=== PATIENT | male | born 1955 | race Caucasian/White ===

== ENCOUNTER 2018-09-04 15:11 | Inpatient (IN) | payer MEDICARE, OTHER ==
[2018-09-04 15:59] LABS: #Basophils 0.1 thou/uL (0.0-0.2); #Eosinphils 0.1 thou/uL (0.0-0.7); #Lymphocytes 1.9 thou/uL (1.20-3.40); #Monocytes 0.5 thou/uL (0.11-0.59); #Neutrophils 3.2 thou/uL (1.40-6.50); %Basophils 1.3 % (0.0-1.0); %Eosinophils 1.5 % (0.0-10.0); %Lymphocytes 32.8 % (21.0-51.0); %Neutrophils 56.4 % (42.0-75.0); Hemoglobin 15.8 g/dL (14.0-18.0); Mean Corpuscular HGB CONC 33.5 g/dL (32.0-36.0); Mean Corpuscular Hemoglobin 31.4 pg (27.0-31.0); Mean Corpuscular Volume 93.7 fL (78.0-98.0); Mean Platelet Volume 7.1 fL (7.4-10.4); Platelet Count 259 thou/uL (130-400); Red Blood Cell (RBC) Count 5.04 mill/uL (4.70-6.10); White Blood Cell (WBC) Count 5.7 thou/uL (4.8-10.8)
[2018-09-04] MEDS ORDERED: Nitroglycerin 2% Ointment 1 INCH/1 GM Packet ONE (16:15)
--- NOTE | 2018-09-04 16:18 | RAD ---
RADIOGRAPH CHEST 1 VIEW: HISTORY: A 63-year-old male with chest pain. FINDINGS: There are no air space densities, pulmonary edema, pneumothorax, or cardiomegaly. The lateral costop hrenic angles are sharp. IMPRESSION: No acute cardiopulmonary findings. jn [] POS: GILDARDO
[2018-09-04 16:25] LABS: CKMB 5.8 ng/mL (0-6.6); Troponin I 0.089 ng/mL (< 0.028)
[2018-09-04 16:28] LABS: ALT (SGPT) 17 U/L (8-55); AST (SGOT) 21 U/L (5-34); Albumin 4.5 g/dL (3.4-4.8); Alkaline Phosphatase 73 U/L (40-150); Anion Gap 14 mmol/L (10-20); BUN (Urea Nitrogen) 14 mg/dL (8.4-25.7); Bilirubin, Total 0.4 mg/dL (0.2-1.2); CK (CPK) 213 U/L (30-200); Calc. Creatinine Clearance 0 mL/min (70-130); Calcium 9.7 mg/dL (7.8-10.44); Carbon Dioxide 24 mmol/L (23-31); Chloride 105 mmol/L (98-107); Estimated GFR-MDRD 84; Globulin 2.9 g/dL (2.4-3.5); Glucose 83 mg/dL (80-115); Lipase 34 U/L (8-78); Potassium 4.2 mmol/L (3.5-5.1); Protein, Total 7.4 g/dL (5.8-8.1); Sodium 139 mmol/L (136-145)
[2018-09-04] MEDS ORDERED: Enoxaparin Sodium 100 MG/ML SYRINGE ONE (16:55)
[2018-09-04] MEDS ORDERED: Acetaminophen 325 MG TAB PO PRN (17:30)
[2018-09-04] MEDS ORDERED: Senokot S 8.6-50 MG TAB PO PRN (17:30)
[2018-09-04] MEDS ORDERED: Acetaminophen 650 MG Suppository PR PRN (17:30)
--- NOTE | 2018-09-04 18:23 | HP ---
PRIMARY CARE PROVIDER: Isaac Rojas M.D. CHIEF COMPLAINT: Chest pain. HISTORY OF PRESENT ILLNESS: Mr. Lozano is a pleasant 63-year-old gentleman who was seen at [facility] on 09/04/2018. He has a history of coronary artery disease and is followed by Dr. Burch. Over the last several weeks, he has had chest discomfort. He describes it as sharp, in the retroster nal region, occasionally radiating to the left side of the chest and down his left arm. The patient reports that the pain is worsened with exercise. He denies that he has any shortness of breath. He denies any nausea, lightheadedness, cough, fevers or chills. He reports that the pain worsened over the last 3 days in terms of the duration as well as intensity. He describes that it was 10/10 yesterday. He started having the pain today afternoon and there was no resolution to the pain, he therefore presented to the emergency room. REVIEW OF SYSTEMS: All other systems reviewed and found to be negative. PAST MEDICAL HISTORY: Coronary artery disease, hypertension, and dyslipidemia. PAST SURGICAL HISTORY: PCI with stents. SOCIAL HISTORY: Rare alcohol use, no tobacco use or recreational drug use. FAMILY HISTORY: His father from myocardial infarction. ALLERGIES: No known drug allergies. CURRENT MEDICATIONS: Plavix 75 mg daily; Edarbi, dose unknown, daily; Praluent injection every 2 wee ks, last dose was 2 days ago; and amlodipine 10 mg daily. The patient was also on aspirin, but it wa s stopped 2 months ago. CODE STATUS: I discussed his code status. He is FULL CODE. PHYSICAL EXAMINATION: GENERAL: Mr. Lozano is awake and alert, not in acute distress. VITAL SIGNS: Blood pressure is 124/70, pulse 63, respiratory rate 14, and oxygen saturation 99% on r oom air. He is afebrile. EYES: No scleral icterus. No conjunctival pallor. ENT: Moist mucosal membranes, no oropharyngeal erythema or exudate. NECK: Supple, nontender, trachea is midline. RESPIRATORY: Accessory muscles of breathing are not active. Chest wall movements are symmetric bila terally. LUNGS: Clear to auscultation, without wheeze, rhonchi or crepitations. CARDIOVASCULAR: S1 and S2 are heard, regular. Peripheral pulses palpable. No carotid bruit, no per icardial rub. ABDOMEN: Soft, nontender, bowel sounds heard, no hepatomegaly, no splenomegaly. NEUROLOGIC: Cranial nerves II-XII intact. Deep tendon reflexes are 2+. MUSCULOSKELETAL: Power is 5/5 in all 4 extremities. SKIN: No rashes or subcutaneous nodules. LYMPHATIC: No cervical lymphadenopathy. PSYCHIATRIC: Normal mood, normal affect, patient is oriented to person, place, and time. LABORATORY DATA: Mr. Lozano's labs and investigations were reviewed. I reviewed his electrocardiogram , which shows normal sinus rhythm, no ST changes to suggest an acute coronary syndrome. I also revie wed his chest x-ray, which does not show any pulmonary infiltrates. He has an unremarkable CBC, D-di josh less than 0.27. Troponin I mildly elevated at 0.089 and an unremarkable comprehensive metabolic profile. Lipase level is normal. ASSESSMENT AND PLAN: Mr. Lozano is a pleasant 63-year-old gentleman who was seen at [facility] on 09/04/2018. His problem list includes: 1. Unstable angina: Mr. Lozano is presenting with unstable angina. He will be admitted to the hospit al for further management. He has already received aspirin and dose of therapeutic Lovenox, which I will continue. Cardiology service being consulted for help with further management. His troponin wi ll be rechecked. 2. Hypertension: We will resume home medications, monitor vital signs and titrate antihypertensives as needed. 3. Dyslipidemia: We will continue Praluent. 4. Elevated troponin: The patient has a troponin that is in the indeterminate range at this time. We will trend troponins. Many thanks for allowing me to participate in your patient's care. Please feel free to contact me wi th any questions or concerns. LEVEL OF RISK: High. LEVEL OF COMPLEXITY: High.
[2018-09-04 19:36] LABS: Troponin I 0.225 ng/mL (< 0.028)
[2018-09-04 20:52] VITALS: BMI 29.7
[2018-09-04 22:49] LABS: Troponin I 0.321 ng/mL (< 0.028)
[2018-09-04] MEDS ORDERED: Metoprolol Tartrate 25 MG TAB PO SCH (23:30)
[2018-09-05] MEDS: Enoxaparin Sodium 100 MG/ML SYRINGE SC SCH ×2 (06:05→17:52)
[2018-09-05 06:09] LABS: #Basophils 0.1 thou/uL (0.0-0.2); #Eosinphils 0.1 thou/uL (0.0-0.7); #Monocytes 0.5 thou/uL (0.11-0.59); #Neutrophils 3.9 thou/uL (1.40-6.50); %Basophils 0.8 % (0.0-1.0); %Eosinophils 1.4 % (0.0-10.0); %Lymphocytes 30.9 % (21.0-51.0); %Monocytes 7.7 % (0.0-10.0); %Neutrophils 59.3 % (42.0-75.0); Hemoglobin 14.2 g/dL (14.0-18.0); Mean Corpuscular HGB CONC 33.2 g/dL (32.0-36.0); Mean Corpuscular Hemoglobin 31.2 pg (27.0-31.0); Mean Corpuscular Volume 93.9 fL (78.0-98.0); Platelet Count 229 thou/uL (130-400); RBC Distribution Width 11.9 % (11.5-14.5); Red Blood Cell (RBC) Count 4.56 mill/uL (4.70-6.10); White Blood Cell (WBC) Count 6.6 thou/uL (4.8-10.8)
[2018-09-05 06:23] LABS: Anion Gap 12 mmol/L (10-20); BUN (Urea Nitrogen) 14 mg/dL (8.4-25.7); Calc. Creatinine Clearance 114 mL/min (70-130); Calcium 9.4 mg/dL (7.8-10.44); Carbon Dioxide 29 mmol/L (23-31); Chloride 105 mmol/L (98-107); Estimated GFR-MDRD 87; Glucose 106 mg/dL (80-115); Potassium 4.5 mmol/L (3.5-5.1); Sodium 141 mmol/L (136-145)
[2018-09-05 08:25] LABS: Hemoglobin 14.4 g/dL (14.0-18.0); Platelet Count 232 thou/uL (130-400)
[2018-09-05 08:46] LABS: Calc. Creatinine Clearance 122 mL/min (70-130); Estimated GFR-MDRD Greater than 90
[2018-09-05] MEDS: Aspirin 325 MG TAB PO SCH (08:54)
[2018-09-05] MEDS: Metoprolol Tartrate 25 MG TAB PO SCH ×2 (08:54→21:40)
[2018-09-05] MEDS: Clopidogrel Bisulfate 75 MG TAB PO SCH (08:54)
[2018-09-05] MEDS ORDERED: Prevnar 13-Val Conj/PF 0.5 ML SYRINGE IM ONE (09:00)
[2018-09-05 09:16] LABS: CKMB 4.7 ng/mL (0-6.6)
[2018-09-05 09:19] LABS: Troponin I 0.407 ng/mL (< 0.028)
[2018-09-05 11:53] LABS: CKMB 4.4 ng/mL (0-6.6)
[2018-09-05 11:55] LABS: Critical Call Chem Troponin I RESULT DECREASING; Troponin I 0.322 ng/mL (< 0.028)
[2018-09-05] MEDS: Nitroglycerin 0.4 MG TAB (25 Tab Bottle) PO PRN ×2 (12:04→18:14)
--- NOTE | 2018-09-05 13:47 | PDOC.PN ---
- Subjective Encounter Start Date: 09/05/18 Encounter Start Time: 08:40 Pt seen for followup re: NSTEMI. Denies chest pain, shortness of breath, fevers or chills. - Objective Resuscitation Status: Resuscitation Status FULL:Full Resuscitation MAR Reviewed: Yes Vital Signs & Weight: Vital Signs (12 hours) Temp Pulse Resp BP Pulse Ox 09/05/18 11:57 97.6 F 64 17 136/74 96 09/05/18 08:47 98.0 F 65 15 124/75 95 09/05/18 04:00 97.9 F 61 16 100/59 L 94 L Weight Weight 208 lb 8 oz I&O: 09/04/18 09/05/18 09/06/18 06:59 06:59 06:59 Intake Total 300 Output Total 1375 Balance -1075 Result Diagrams: 09/05/18 08:00 09/05/18 08:00 EKG Reviewed by me: Yes (Tele: NSR) Phys Exam - Physical Examination Constitutional: NAD HEENT: moist MMs, sclera anicteric, oral pharynx no lesions, 2+ tonsils Neck: no nodes, no JVD, supple, full ROM Respiratory: no wheezing, no rales, no rhonchi, clear to auscultation bilateral Cardiovascular: RRR, no rub S1, S2 Gastrointestinal: soft, non-tender, no distention, positive bowel sounds Neurological: moves all 4 limbs Psychiatric: normal affect, A&O x 3 Dx/Plan (1) NSTEMI (non-ST elevated myocardial infarction) Code(s): I21.4 - NON-ST ELEVATION (NSTEMI) MYOCARDIAL INFARCTION Status: Acute Comment: continue aspirin, Plavix and Lovenox (2) HTN (hypertension) Code(s): I10 - ESSENTIAL (PRIMARY) HYPERTENSION Status: Chronic Comment: controlled (3) Dyslipidemia Code(s): E78.5 - HYPERLIPIDEMIA, UNSPECIFIED Status: Chronic - Plan * . Review of Systems - Review of Systems Constitutional: negative: fever, chills, sweats, weakness, malaise Respiratory: negative: Cough, Shortness of Breath, SOB with Excertion, Pleuritic Pain, Wheezing Cardiovascular: negative: chest pain, palpitations, orthopnea, paroxysmal nocturnal dyspnea, edema, light headedness Gastrointestinal: negative: Nausea, Vomiting, Abdominal Pain, Diarrhea, Constipation, Melena, Hematochezia Genitourinary: negative: Dysuria, Frequency, Incontinence, Hematuria, Retention Skin: negative: Rash, Lesions, Jacob, Bruising - Medications/Allergies Allergies/Adverse Reactions: Allergies Allergy/AdvReac Type Severity Reaction Status Date / Time No Known Allergies Allergy Verified 09/04/18 23:48 Medications: Current Medications Acetaminophen (Tylenol) 650 mg PO Q4H PRN PRN Reason: Headache/Fever/Mild Pain (1-3) Acetaminophen (Tylenol) 650 mg [place] Q4H PRN PRN Reason: Headache/Fever/Mild Pain (1-3) Amlodipine Besylate (Norvasc) 10 mg PO HS [facility] Aspirin (Aspirin) 325 mg PO DAILY [facility] Last Admin: 09/05/18 08:54 Dose: 325 mg Clopidogrel Bisulfate (Plavix) 75 mg PO QAM [facility] Last Admin: 09/05/18 08:54 Dose: 75 mg Enoxaparin Sodium (Lovenox) 100 mg SC 0600,1800 [facility] Last Admin: 09/05/18 06:05 Dose: 100 mg Losartan Potassium (Cozaar) 100 mg PO [facility] Metoprolol Tartrate (Lopressor) 12.5 mg PO BID [facility] Last Admin: 09/05/18 08:54 Dose: 12.5 mg Nitroglycerin (Nitrostat) 0.4 mg PO Q5MIN PRN PRN Reason: Chest Pain Last Admin: 09/05/18 12:04 Dose: 0.4 mg Senna/Docusate Sodium (Senokot S) 2 tab PO BID PRN PRN Reason: Constipation
[2018-09-05] MEDS: Amlodipine 10 MG TAB PO SCH (21:40)
[2018-09-05] MEDS: Losartan 25 MG TAB PO SCH (21:41)
[2018-09-06] MEDS: Enoxaparin Sodium 100 MG/ML SYRINGE SC SCH ×2 (05:41→18:23)
[2018-09-06 06:46] LABS: #Eosinphils 0.1 thou/uL (0.0-0.7); #Lymphocytes 1.8 thou/uL (1.20-3.40); #Monocytes 0.4 thou/uL (0.11-0.59); #Neutrophils 2.7 thou/uL (1.40-6.50); %Basophils 0.7 % (0.0-1.0); %Eosinophils 1.6 % (0.0-10.0); %Lymphocytes 35.7 % (21.0-51.0); %Monocytes 8.1 % (0.0-10.0); %Neutrophils 53.9 % (42.0-75.0); Hemoglobin 14.5 g/dL (14.0-18.0); Mean Corpuscular HGB CONC 33.5 g/dL (32.0-36.0); Mean Corpuscular Hemoglobin 31.3 pg (27.0-31.0); Mean Corpuscular Volume 93.5 fL (78.0-98.0); Mean Platelet Volume 7.4 fL (7.4-10.4); Platelet Count 221 thou/uL (130-400); RBC Distribution Width 11.9 % (11.5-14.5); Red Blood Cell (RBC) Count 4.62 mill/uL (4.70-6.10); White Blood Cell (WBC) Count 5.1 thou/uL (4.8-10.8)
[2018-09-06 07:10] LABS: Anion Gap 10 mmol/L (10-20); BUN (Urea Nitrogen) 13 mg/dL (8.4-25.7); Calc. Creatinine Clearance 118 mL/min (70-130); Calcium 9.2 mg/dL (7.8-10.44); Carbon Dioxide 27 mmol/L (23-31); Chloride 105 mmol/L (98-107); Estimated GFR-MDRD 89; Glucose 100 mg/dL (80-115); Potassium 3.9 mmol/L (3.5-5.1); Sodium 138 mmol/L (136-145)
[2018-09-06] MEDS: Aspirin 325 MG TAB PO SCH (10:14)
[2018-09-06] MEDS: Clopidogrel Bisulfate 75 MG TAB PO SCH (10:14)
[2018-09-06] MEDS: Metoprolol Tartrate 25 MG TAB PO SCH ×2 (10:14→20:55)
--- NOTE | 2018-09-06 10:35 | PDOC.PN ---
- Subjective Encounter Start Date: 09/06/18 Encounter Start Time: 07:40 Pt seen for followup re: NSTEMI. Had chest pain twice yesterday, none today. CP resolved with nitro. - Objective Resuscitation Status: Resuscitation Status FULL:Full Resuscitation MAR Reviewed: Yes Vital Signs & Weight: Vital Signs (12 hours) Temp Pulse Resp BP Pulse Ox 09/06/18 10:11 98.1 F 66 16 123/72 95 09/06/18 04:00 97.9 F 92 14 129/79 96 Weight Weight 213 lb 14.4 oz I&O: 09/05/18 09/06/18 09/07/18 06:59 06:59 06:59 Intake Total 300 690 Output Total 1375 1850 Balance -1075 -1160 Result Diagrams: 09/06/18 05:56 09/06/18 05:56 EKG Reviewed by me: Yes (Tele: NSR) Phys Exam - Physical Examination Constitutional: NAD HEENT: moist MMs Neck: supple Respiratory: clear to auscultation bilateral Cardiovascular: RRR Gastrointestinal: soft Neurological: moves all 4 limbs Psychiatric: normal affect Dx/Plan (1) NSTEMI (non-ST elevated myocardial infarction) Code(s): I21.4 - NON-ST ELEVATION (NSTEMI) MYOCARDIAL INFARCTION Status: Acute Comment: on aspirin, Plavix and Lovenox. Started on Ranexa as well. (2) HTN (hypertension) Code(s): I10 - ESSENTIAL (PRIMARY) HYPERTENSION Status: Chronic Comment: controlled (3) Dyslipidemia Code(s): E78.5 - HYPERLIPIDEMIA, UNSPECIFIED Status: Chronic Comment: pt takes Praluent q 2 weeks, not due for a dose today - Plan * . Review of Systems - Review of Systems Constitutional: negative: fever, chills, sweats, weakness, malaise Respiratory: SOB with Excertion. negative: Cough, Shortness of Breath, Pleuritic Pain, Wheezing Cardiovascular: chest pain. negative: palpitations, orthopnea, paroxysmal nocturnal dyspnea, edema, light headedness - Medications/Allergies Allergies/Adverse Reactions: Allergies Allergy/AdvReac Type Severity Reaction Status Date / Time No Known Allergies Allergy Verified 09/04/18 23:48 Medications: Current Medications Acetaminophen (Tylenol) 650 mg PO Q4H PRN PRN Reason: Headache/Fever/Mild Pain (1-3) Acetaminophen (Tylenol) 650 mg [place] Q4H PRN PRN Reason: Headache/Fever/Mild Pain (1-3) Amlodipine Besylate (Norvasc) 10 mg PO HS [facility] Last Admin: 09/05/18 21:40 Dose: 10 mg Aspirin (Aspirin) 325 mg PO DAILY [facility] Last Admin: 09/06/18 10:14 Dose: 325 mg Clopidogrel Bisulfate (Plavix) 75 mg PO QAM [facility] Last Admin: 09/06/18 10:14 Dose: 75 mg Enoxaparin Sodium (Lovenox) 100 mg SC 0600,1800 [facility] Last Admin: 09/06/18 05:41 Dose: 100 mg Losartan Potassium (Cozaar) 100 mg PO HS [facility] Last Admin: 09/05/18 21:41 Dose: 100 mg Metoprolol Tartrate (Lopressor) 12.5 mg PO BID [facility] Last Admin: 09/06/18 10:14 Dose: 12.5 mg Nitroglycerin (Nitrostat) 0.4 mg PO Q5MIN PRN PRN Reason: Chest Pain Last Admin: 09/05/18 18:14 Dose: 0.4 mg Ranolazine (Ranexa) 500 mg PO BID [facility] Last Admin: 09/06/18 10:14 Dose: 500 mg Senna/Docusate Sodium (Senokot S) 2 tab PO BID PRN PRN Reason: Constipation
[2018-09-06] MEDS ORDERED: Communication Order-Pharmacy FS SCH ×2 (11:00→23:45)
--- NOTE | 2018-09-06 14:46 | ADD-CON ---
ADDENDUM DATE OF CONSULTATION: 09/05/2018 INDICATION FOR CONSULTATION: A 63-year-old patient with a history of known coronary artery disease, status post angioplasty and stent placement to the right coronary artery with a redo stent to the attila e vessel. His last cardiac catheterization was in 03/2015. His original stent placement was in 2005 . At this time, he presented again having a chest discomfort. Cardiac enzymes are indeterminate or sli ghtly abnormal, as on admission the troponin I was 0.089, increased up to 0.4, and is now decreased b ack down to 0.32. His MBs are 4.7 and decreased down to 4.4. He said recently he has been noticing some chest pain with exertion and now just with minimal exertion, he has been having some chest disco mfort. Even if he walks down the hallway, he complains of some chest pain. His EKG does not show an y significant changes; however, it does not appear to be ischemic in nature, but certainly his sympto ms are compatible with ischemia. He states that his pain at this time is somewhat similar to the edwin n he had in 2014. His last stress test was in 06/2017, which showed inferior scar with jose-infarct ischemia. Ejection fraction was 56% at that time. I am uncertain as to the amount of disease in his other coronary arteries that was noted in 2005 and 2014 and whether or not these arteries were free of any significant flow-limiting disease and he may have had progression of the disease is uncertain, or he may have had in-stent re-stenosis involving the right coronary artery. The patient desires to have a repeat cardiac catheterization to truly evaluate his coronary artery status to see whether or not he has had any changes and to see whether or not the stents have remained patent. At the presen t time, he is asymptomatic and is comfortable, but with minimal exertion does continue to have some c hest discomfort. At this time, we will try to maintain the patient. We will continue his medication s. We will add nitrates as needed and we will also consider starting the patient on Ranexa, to see w hether or not this may help some with his discomfort. He is already taking aspirin and Plavix and he is on Lovenox, and we have already added the Ranexa today. He has p.r.n. nitroglycerin and we will also add nitroglycerin paste and this may alleviate some of his discomfort as long as the blood press ure tolerates it. PAST MEDICAL HISTORY: Please refer to the notes already dictated by my nurse practitioner. SOCIAL HISTORY: Please refer to the notes already dictated by my nurse practitioner. FAMILY HISTORY: Please refer to the notes already dictated by my nurse practitioner. REVIEW OF SYSTEMS: Please refer to the notes already dictated by my nurse practitioner. LIST OF MEDICATIONS: Please refer to the notes already dictated by my nurse practitioner. ALLERGIES: Please refer to the notes already dictated by my nurse practitioner. PHYSICAL EXAMINATION: GENERAL: Reveals an elderly gentleman who is in no acute distress. He is alert and oriented at this time. VITAL SIGNS: Stable. Blood pressure is 147/78, heart rate is 78 and shows a sinus rhythm, respirato ry rate is about 14, O2 saturations was 96%. He is afebrile. HEENT: Shows the head to be normocephalic and atraumatic. NECK: Carotid pulses are present. I cannot hear any bruits. I did not notice any JVD. The thyroid did not appear to be enlarged. CHEST: Clear to auscultation without rales, rhonchi, or wheezing. CARDIOVASCULAR: Reveals a regular rate and rhythm with a normal S1 and S2. There were no significan t murmurs, heaves, thrills, bruits, or rubs noted. ABDOMEN: Soft and nontender with positive bowel sounds. EXTREMITIES: Showed no clubbing, cyanosis, or edema. Pedal pulses are present. NEUROLOGIC: The patient appears to be fully intact. He has normal strength and tone. He is able to ambulate without difficulties except for the chest discomfort. IMPRESSION: 1. Coronary artery disease with unstable angina-type symptoms. The patient may best be served by un dergoing repeat cardiac catheterization. He may have had progression of disease. He may have in-angel nt restenosis or he may have another artery that has been involved with his angina, and given his ind eterminate cardiac enzymes and continued chest discomfort with minimal exertion, he will need to unde rgo cardiac catheterization. We will try to hold off until Friday when Dr. Burch sees the patient , but we will schedule him tentatively for a cardiac catheterization on Friday and we will inform Dr. Burch. The patient may need to undergo cardiac catheterization. I do not believe it will be in the best interest of the patient to undergo repeat stress testing at this time since he appears to leal ve unstable angina-type symptoms. We will continue his medical treatment at this time. If he become s more unstable or has EKG changes or significant increase in the cardiac enzymes, we may need to pro ceed with cardiac catheterization on an emergent basis. 2. As far as his other medical problems with hypertension, this is under reasonable control, but we will continue with his beta blockers. 3. Dyslipidemia. We will continue also with his medical management of the dyslipidemia. He had bee n on in the past for his cholesterol and if his last injection was less than 2 weeks ago, then he should be covered for his cholesterol. Laboratory data, there was no cholesterol evaluated at thi s time. As far as his other laboratory data, please refer to the notes already dictated. We will continue to follow the patient very carefully and should he have further problems, then he wi ll need to undergo evaluation sooner than Friday.
--- NOTE | 2018-09-06 14:47 | CON ---
DATE OF CONSULTATION: 09/05/2018 PRIMARY CARE PHYSICIAN: Isaac Rojas M.D. PRIMARY BIOMETRIC TECHNICIAN: Kalen Burch M.D. REFERRING PHYSICIAN: Drew Moe D.O. REASON FOR CARDIOLOGY CONSULTATION: Non-STEMI chest pain, unstable angina. HISTORY OF PRESENT ILLNESS: Mr. Lozano is a 63-year-old male with a significant history of c oronary artery disease with stent placement x2, the last one in 2014; hypertension; hyperlipidemia. The patient has a long history of unstable angina. He had been seeing Dr. Burch quite a while, ho teddy, he started having on and off unstable angina for quite a while. He cannot tell when he starte d having the onset; however, he has noticed lately someday when he was walking for the exercise that he had to stop walking at around 200-300 feet due to the heaviness in his chest. He had to go back t o his place for rest and sometimes he does not have those symptoms. On the morning, the patient started having heaviness in the mediastinal area. The heaviness radiated to the left ar m. He took one nitro sublingual at that time, which improved his symptom, however, he has another sy mptom on the Friday all day, so the patient decided to present to emergency department for further ev aluation and treatment. The patient denied any other cardiac complaints such as shortness of breath, dizziness, lightheadedness, palpitation, or fluttering in his chest. His vital signs at home have b een in the 120-130/80s with heart rate 65-75. He could walk 2 miles without any cardiac symptoms unt il 10 days ago. At this moment, the patient denied any chest pain, discomfort, heaviness, shortness of breath, any other cardiac complaints. The patient has a history of stent placement x2, first one was about 10 years ago and the second one in 03/2015 with stent to the distal RCA and the patient's last echocardiogram was done in 2004, which shows EF of 55% to 60% with normal wall motion and inferior posterior wall becomes hypokinetic with stress and ischemia of the inferior posterior wall and the stress test was done in 06/2017, which nikolas ws the possible abnormal stress test with inferior ischemia/scar which was already shown in the [facility] ardiogram in 2004. The latest cardiac catheterization was done in 03/2015 with 60% of stenosis in pr oximal RCA and 90% in the distal RCA with stent placement. PAST MEDICAL HISTORY: 1. Coronary artery disease with multiple stent placements. 2. Hypertension. 3. Hyperlipidemia. 4. Intolerance of statin medicine. PAST SURGICAL HISTORY: 1. surgery. 2. Multiple PTCA and stent placement, total of 5 stents. FAMILY HISTORY: The patient's father due to cardiac arrest. He has a defibrillator also. The patient's brother has congenital valve and replacement. The patient's maternal side does n ot have any significant cardiac-related medical history. SOCIAL HISTORY: The patient is to continue working. He lives with his . He has two children wh o live well. He used to chew, cigar, which he stopped about 10 years ago when he had first stent severo cement. He drinks about once in 1-2 months; however, according to family and his son, the patient dr inks at least 4-6 beer on every occasion. He used to walk 2 miles a day until 10 days ago. He stopp ed it because of his symptoms and also . ALLERGIES: He has no known drug allergy. HOME MEDICATIONS: Fish oil 1000 mg once a day, CoQ10 of 400 mg once a day, every 2 weeks, Edar bi 40 mg once a day, Plavix once a day, Norvasc 10 mg once a day. REVIEW OF SYSTEMS: Negative unless otherwise mentioned in the HPI. The patient's family was noticed that the patient having less concentration especially afternoon lately. PHYSICAL EXAMINATION: VITAL SIGNS: Blood pressure 136/74, pulse is 64 and sinus rhythm, respiratory rate 17, temperature 9 7.6, and 96% with room air. GENERAL: The patient is alert, oriented x4, not in acute distress. HEENT: Head, normocephalic, atraumatic. Eyes, extraocular muscle movements are intact. ENT and Kallie th: Oral and nasal mucosa are moist without lesion. NECK: No JVD. Neck is supple. Normal range of motion. RESPIRATORY: Clear to auscultation bilaterally. CARDIOVASCULAR: Regular rate and rhythm. Normal S1, S2. There are no S3, S4. No significant murmu r, hives, or thrill noted. Carotid pulses are present without bruit or thrill. 2+ pulses in bilater al upper and lower extremities. No edema. ABDOMEN: Nontender. No mass to palpate. Bowel sounds are present. MUSCULOSKELETAL: The patient able to move all extremities. He denies claudication. SKIN: No bruise, lesion, or rash noted. NEUROLOGIC: Nonfocal. PSYCHIATRIC: The patient's mood is appropriate. DIAGNOSTIC DATA: Chest x-ray showing no acute cardiopulmonary finding. A 12-lead EKG in the ER show s sinus rhythm with heart rate of 57. No ST segment change or T-wave inversion. LABORATORY DATA: WBC 6.6, hemoglobin 14.2, hematocrit 42.8, platelet 229. D-dimer 0.27. Sodium 144 , potassium 4.5, creatinine 0.81. CK-MB 4.4. Troponins are 0.089, 0.225, 0.321, 0.407 and 0.322. ASSESSMENT AND PLAN: 1. Unstable angina with elevated troponin. The patient's stress test in 06/2017 showing a possible abnormal stress test with EF of 56% and inferior ischemia/possible scar. The patient was doing well until a couple of months ago. At this moment, the patient is on beta anupam, aspirin, Plavix, and L ovenox twice a day. At this moment, I would like to discuss with Dr. Kendall for the patient's further evaluation. However, possibility is that the patient is going to have a cardiac catheterization on M onday. We would like to continue to monitor the patient on telemetry. 2. Hypertension. The patient's blood pressure has been stable. At this moment, we would like to co ntinue to monitor. 3. Hyperlipidemia. According to the patient, the patient is on the last LDL was done in 08/01 18, which shows 48. We would like to continue to monitor. Thank you for allowing the Cardiology Service to participate in care of this patient. We will follow along the patient care team and make further recommendation as appropriate.
[2018-09-06] MEDS: Amlodipine 10 MG TAB PO SCH (20:54)
[2018-09-06] MEDS: Losartan 25 MG TAB PO SCH (20:55)
[2018-09-07] MEDS: Metoprolol Tartrate 25 MG TAB PO SCH ×2 (05:53→21:58)
[2018-09-07] MEDS: Clopidogrel Bisulfate 75 MG TAB PO SCH (05:53)
[2018-09-07] MEDS: Aspirin 325 MG TAB PO SCH (05:54)
[2018-09-07 06:10] LABS: #Eosinphils 0.1 thou/uL (0.0-0.7); #Lymphocytes 1.8 thou/uL (1.20-3.40); #Monocytes 0.4 thou/uL (0.11-0.59); #Neutrophils 2.9 thou/uL (1.40-6.50); %Basophils 0.7 % (0.0-1.0); %Eosinophils 2.4 % (0.0-10.0); %Lymphocytes 33.5 % (21.0-51.0); %Monocytes 8.4 % (0.0-10.0); %Neutrophils 55.1 % (42.0-75.0); Hemoglobin 14.4 g/dL (14.0-18.0); Mean Corpuscular HGB CONC 33.5 g/dL (32.0-36.0); Mean Corpuscular Hemoglobin 31.2 pg (27.0-31.0); Mean Corpuscular Volume 93.4 fL (78.0-98.0); Mean Platelet Volume 7.1 fL (7.4-10.4); Platelet Count 225 thou/uL (130-400); RBC Distribution Width 11.8 % (11.5-14.5); White Blood Cell (WBC) Count 5.2 thou/uL (4.8-10.8)
[2018-09-07 06:22] LABS: Anion Gap 11 mmol/L (10-20); BUN (Urea Nitrogen) 17 mg/dL (8.4-25.7); Calc. Creatinine Clearance 114 mL/min (70-130); Calcium 8.9 mg/dL (7.8-10.44); Carbon Dioxide 25 mmol/L (23-31); Chloride 107 mmol/L (98-107); Estimated GFR-MDRD 86; Glucose 102 mg/dL (80-115); Potassium 3.8 mmol/L (3.5-5.1); Sodium 139 mmol/L (136-145)
[2018-09-07] MEDS ORDERED: Lidocaine 1% (PF) 30 ML VIAL ONE (08:10)
[2018-09-07] MEDS ORDERED: Fentanyl 100 MCG/2 ML VIAL ONE (09:29)
[2018-09-07] MEDS ORDERED: Midazolam HCl 2 mg/2 ml Vial ONE (09:30)
[2018-09-07] MEDS ORDERED: Heparin 10,000 UNITS/1 ML VIAL ONE ×2 (09:30→10:09)
[2018-09-07] MEDS ORDERED: Nitroglycerin 0.4 MG TAB (25 Tab Bottle) SL PRN (10:31)
[2018-09-07] MEDS ORDERED: Sodium Chloride 0.9% 1,000 ML IV SCH (10:45)
--- NOTE | 2018-09-07 14:58 | PDOC.PN ---
- Subjective Encounter Start Date: 09/07/18 Encounter Start Time: 14:55 Pt seen for followup re: NSTEMI. Feels better, no chest pain, had cath. - Objective Resuscitation Status: Resuscitation Status FULL:Full Resuscitation Vital Signs & Weight: Vital Signs (12 hours) Temp Pulse Resp BP Pulse Ox 09/07/18 07:40 97.9 F 57 L 14 118/77 97 09/07/18 07:01 96 09/07/18 04:00 97.7 F 60 16 110/69 96 Weight Weight 213 lb 14.4 oz I&O: 09/06/18 09/07/18 09/08/18 06:59 06:59 06:59 Intake Total 690 350 450 Output Total 1850 850 Balance -1160 -500 450 Result Diagrams: 09/07/18 05:29 09/07/18 05:29 Phys Exam - Physical Examination Constitutional: NAD HEENT: moist MMs Neck: supple Respiratory: clear to auscultation bilateral Cardiovascular: RRR Gastrointestinal: soft Neurological: moves all 4 limbs Psychiatric: normal affect Dx/Plan (1) NSTEMI (non-ST elevated myocardial infarction) Code(s): I21.4 - NON-ST ELEVATION (NSTEMI) MYOCARDIAL INFARCTION Status: Acute Comment: s/p cath. On Ranexa. Likely home tomorrow. (2) HTN (hypertension) Code(s): I10 - ESSENTIAL (PRIMARY) HYPERTENSION Status: Chronic Comment: controlled (3) Dyslipidemia Code(s): E78.5 - HYPERLIPIDEMIA, UNSPECIFIED Status: Chronic Comment: pt takes Praluent q 2 weeks - Plan * . Review of Systems - Medications/Allergies Allergies/Adverse Reactions: Allergies Allergy/AdvReac Type Severity Reaction Status Date / Time No Known Allergies Allergy Verified 09/04/18 23:48 Medications: Current Medications Acetaminophen (Tylenol) 650 mg PO Q4H PRN PRN Reason: Headache/Fever/Mild Pain (1-3) Acetaminophen (Tylenol) 650 mg MN Q4H PRN PRN Reason: Headache/Fever/Mild Pain (1-3) Amlodipine Besylate (Norvasc) 10 mg PO HS [facility] Last Admin: 09/06/18 20:54 Dose: 10 mg Aspirin (Aspirin Chewable) 81 mg PO DAILY [facility]opidogrel [facility]ix) [facility] [place] Admin: 09/07/18 05:53 Dose: 75 mg Sodium Chloride (Normal Saline 0.9%) 1,000 mls @ 100 mls/hr IV .Q10H [facility] Stop: 09/07/18 16:46 Last Admin: 09/07/18 14:27 Dose: 1,000 mls Isosorbide Mononitrate (Imdur Er) 30 mg PO DAILY [facility] Losartan Potassium (Cozaar) 100 mg PO HS [facility] Last Admin: 09/06/18 20:55 Dose: 100 mg Metoprolol Tartrate (Lopressor) 12.5 mg PO BID [facility] Last Admin: 09/07/18 05:53 Dose: 12.5 mg Miscellaneous Information (Communication Order-Pharmacy) 0 each FS ONE [facility] Nitroglycerin (Nitrostat) 0.4 mg SL Q5MIN PRN PRN Reason: Chest Pain Ranolazine (Ranexa) 1,000 mg PO BID [facility] Senna/Docusate Sodium (Senokot S) 2 tab PO BID PRN PRN Reason: Constipation
[2018-09-07] MEDS ORDERED: Iopamidol 370 76% 100 ML VIAL ONE (16:42)
[2018-09-07] MEDS ORDERED: Iopamidol 370 76% 50 ML VIAL FS ONE (16:42)
--- NOTE | 2018-09-07 19:28 | EKG ---
Test Reason : POST BALLOON Blood Pressure : / mmHG Vent. Rate : 056 BPM Atrial Rate : 056 BPM P-R Int : 162 ms QRS Dur : 148 ms QT Int : 454 ms P-R-T Axes : 058 060 -09 degrees QTc Int : 438 ms Sinus bradycardia Right bundle branch block Abnormal ECG When compared with ECG of 04-SEP-2018 18:29, (Unconfirmed) Right bundle branch block is now Present Minimal criteria for Inferior infarct are now Present Confirmed by MERYL HOYOS, DR. Scott ([id number]) on 09/07/2018 7:27:46 PM Referred By: JOSE R Confirmed By:DR. Sonia SHETH MD
[2018-09-07] MEDS: Losartan 25 MG TAB PO SCH (21:58)
[2018-09-07] MEDS: Amlodipine 10 MG TAB PO SCH (21:58)
[2018-09-08 06:08] LABS: #Eosinphils 0.1 thou/uL (0.0-0.7); #Lymphocytes 1.5 thou/uL (1.20-3.40); #Monocytes 0.5 thou/uL (0.11-0.59); #Neutrophils 3.8 thou/uL (1.40-6.50); %Basophils 0.4 % (0.0-1.0); %Eosinophils 1.8 % (0.0-10.0); %Lymphocytes 24.9 % (21.0-51.0); %Monocytes 8.2 % (0.0-10.0); %Neutrophils 64.6 % (42.0-75.0); Hemoglobin 13.5 g/dL (14.0-18.0); Mean Corpuscular HGB CONC 34.5 g/dL (32.0-36.0); Mean Corpuscular Hemoglobin 32.2 pg (27.0-31.0); Mean Corpuscular Volume 93.2 fL (78.0-98.0); Mean Platelet Volume 7.3 fL (7.4-10.4); Platelet Count 206 thou/uL (130-400); RBC Distribution Width 11.8 % (11.5-14.5); Red Blood Cell (RBC) Count 4.21 mill/uL (4.70-6.10); White Blood Cell (WBC) Count 5.9 thou/uL (4.8-10.8)
[2018-09-08 06:30] LABS: ALT (SGPT) 37 U/L (8-55); AST (SGOT) 36 U/L (5-34); Albumin 3.6 g/dL (3.4-4.8); Alkaline Phosphatase 47 U/L (40-150); Anion Gap 11 mmol/L (10-20); BUN (Urea Nitrogen) 19 mg/dL (8.4-25.7); Bilirubin, Total 0.9 mg/dL (0.2-1.2); Calc. Creatinine Clearance 116 mL/min (70-130); Calcium 8.7 mg/dL (7.8-10.44); Carbon Dioxide 23 mmol/L (23-31); Chloride 108 mmol/L (98-107); Estimated GFR-MDRD 88; Globulin 2.2 g/dL (2.4-3.5); Glucose 105 mg/dL (80-115); Potassium 3.8 mmol/L (3.5-5.1); Protein, Total 5.8 g/dL (5.8-8.1); Sodium 138 mmol/L (136-145)
[2018-09-08] MEDS ORDERED: Losartan 25 MG TAB PO SCH (08:28)
[2018-09-08] MEDS ORDERED: Sodium Chloride 0.9% 10 ML ONE (09:21)
[2018-09-08] MEDS ORDERED: Sodium Chloride 0.9% 500 ML IVPB SCH (09:30)
[2018-09-08] MEDS: Clopidogrel Bisulfate 75 MG TAB PO SCH (09:43)
[2018-09-08] MEDS: Metoprolol Tartrate 25 MG TAB PO SCH (09:44)
[2018-09-08 12:41] VITALS: BP 111/61; TEMP 98
--- NOTE | 2018-09-08 13:14 | EKG ---
Test Reason : Blood Pressure : / mmHG Vent. Rate : 063 BPM Atrial Rate : 063 BPM P-R Int : 160 ms QRS Dur : 152 ms QT Int : 450 ms P-R-T Axes : 048 049 -15 degrees QTc Int : 460 ms Normal sinus rhythm Right bundle branch block Abnormal ECG When compared with ECG of 07-SEP-2018 11:13, No significant change was found Confirmed by MERYL HOYOS, SEric ([id number]) on 09/08/2018 1:13:57 PM Referred By: JOSE R Confirmed By:DR. Sonia SHETH MD
--- NOTE | 2018-09-09 06:07 | DIS ---
DATE OF ADMISSION: 09/04/2018 DATE OF DISCHARGE: 09/08/2018 DISCHARGE DIAGNOSES: 1. [id number] myocardial infarction. 2. Coronary artery disease. 3. Hypertension. 4. Dyslipidemia. HISTORY OF PRESENT ILLNESS: This patient is a 63-year-old male, who was originally admitted on 08/04/[address] Pennington. For full details, please see his history and physical dated on that day. Briefly, however, this patient presented with several weeks of chest discomfort that was sharp and retrosternal and having some radiation down his left arm. This appeared to be progressing. The patient was admitted to the hospital with unstable angina. HOSPITAL COURSE: The patient had initial minimal elevations of troponin, but felt to have unstable anginal symptoms. He was admitted to Medicine Service and Cardiology was consulted. Subsequent troponins did increase a bit to a peak of 0.4. The patient's symptoms were felt to warrant cath intervention with Cardiology. Subsequently, the patient did undergo heart cath procedure on 09/07. At that time, the patient was noted to have some stenosis in the RCA. Multiple attempts were made in order to adequately dilate this vessel, which was felt to be more related to some scarring of the vessel and stent placement could not be achieved. Subsequent, the patient did well, remained asymptomatic. PHYSICAL EXAMINATION: VITAL SIGNS: On the day of discharge, temperature was 98.0, pulse 61, respirations 16, O2 saturation 97% on room air, and blood pressure was 111/61. GENERAL: The patient was awake, alert, oriented, pleasant, and cooperative. HEART: Regular rate and rhythm without murmurs. LUNGS: Clear bilaterally. ABDOMEN: Benign. DISPOSITION: The patient is discharged to home. ACTIVITIES: As tolerated. DIET: He would be on a heart healthy diet. DISCHARGE MEDICATIONS: He will be on; 1. Sublingual nitroglycerin. 2. Aspirin 81 mg daily. 3. Vascepa 1 g b.i.d., samples were given. 4. Isosorbide mononitrate 30 mg daily. 5. Metoprolol 12.5 mg b.i.d. 6. Ranexa 1000 mg b.i.d., samples were given. 7. He will continue with Plavix 75 mg daily and Praluent 150 mg subcu twice a month. 8. Amlodipine 10 mg at bedtime and he will discontinue the azilsartan. FOLLOWUP: He is to follow up with cardiac rehab and Dr. Burch on 09/24/2018 at 08:30 in the morning. He also is to follow up with Dr. Isaac Rojas on 09/15/2018. The patient should return to the emergency department should he have any problems prior to that time. Job ID: [id number]
== END 2018-09-08 13:27 | disposition home or self-care (01) | DRG 251 ==
LOC: ERS 15:11 → 2NO 17:42
PROVIDERS: ADMIT Internal Medicine; ATTEND Internal Medicine
PROC: 02703ZZ Dilation of Coronary Artery, One Artery, Percutaneous Approach (ICD-10-PCS; principal; 2018-09-07)
PROC: 4A023N7 Measurement of Cardiac Sampling and Pressure, Left Heart, Percutaneous Approach (ICD-10-PCS; 2018-09-07)
PROC: B2111ZZ Fluoroscopy of Multiple Coronary Arteries using Low Osmolar Contrast (ICD-10-PCS; 2018-09-07)
PROC: B2151ZZ Fluoroscopy of Left Heart using Low Osmolar Contrast (ICD-10-PCS; 2018-09-07)
DX: I21.4 Non-ST elevation (NSTEMI) myocardial infarction (principal); I25.110 Atherosclerotic heart disease of native coronary artery with unstable angina pectoris; Z95.5 Presence of coronary angioplasty implant and graft; I10 Essential (primary) hypertension; E78.5 Hyperlipidemia, unspecified; Z79.899 Other long term (current) drug therapy; Z79.02 Long term (current) use of antithrombotics/antiplatelets
CPT/HCPCS: 36415; 71045; 80048; 80053; 82553; 83690; 84484; 85025; 85347; 85379; 90471; 90670; 92920; 93005; 93010; 93458; 93798; 94760; 96372; 99152; C1725; C1769; C1887; G0009; J1644; J1650; J2001; J2250; J3010

== ENCOUNTER 2021-07-03 07:26 | Outpatient (CLI) | payer MEDICARE, OTHER ==
[2021-07-03] MEDS ORDERED: Iopamidol-370 76% 500 ML 1 ML ONE (11:39)
== END 2021-07-03 07:27 | disposition home or self-care (01) ==
LOC: BICCT 07:26
PROVIDERS: ATTEND Family Medicine
DX: R10.30 Lower abdominal pain, unspecified (principal); K21.9 Gastro-esophageal reflux disease without esophagitis; K57.32 Diverticulitis of large intestine without perforation or abscess without bleeding
CPT/HCPCS: 74177; Q9967